=== PATIENT | male | born 1945 | race Caucasian/White ===

== ENCOUNTER 2018-10-12 08:39 | Emergency (ER) | payer BC, OTHER ==
[~2018-10-12] VITALS: Ht 182.9 cm; Wt 99.8 kg
[2018-10-12 08:39] VITALS: BP_SYST 167
--- NOTE | 2018-10-12 08:39 | NUR ---
BROUGHT BACK TO BED #8 AND TRIAGED. REPORT GIVEN TO NAM
--- NOTE | 2018-10-12 08:40 | NUR ---
Pt here in ED for c/o left cheek pain since Wednesday, 4 days, no swelling, mild redness, skin intact. Pt is able to swallow, no airway obstruction noted. Respirations even and unlabored, no distress noted. Pt c/o pain 8/10, afebrile. Denied pain to gums or teeth.
--- NOTE | 2018-10-12 08:41 | NUR ---
Dr. Matos at bedside to assess pt.
[2018-10-12] MEDS ORDERED: KETOROLAC TROMETHAMINE 60 MG/2 ML VIAL IM ONE (09:00)
--- NOTE | 2018-10-12 09:10 | NUR ---
Patient given written and verbal discharge instructions and verbalizes understanding. ER MD discussed with patient the results and treatment provided. Patient in stable condition. ID arm band removed. Rx of Sudafed and Azithromycin given. Opportunity for questions provided and answered. Medication side effect fact sheet provided.
[2018-10-12 09:14] VITALS: BP_SYST 150
== END 2018-10-12 09:10 | disposition home or self-care (01) ==
LOC: SED 08:39
DX: J32.0 Chronic maxillary sinusitis (principal)
CPT/HCPCS: 96372; 99283; J1885